=== PATIENT | female | born 1975 | race Caucasian/White ===

== ENCOUNTER → 2021-02-20 10:14 | Outpatient (CLI) | payer OTHER, SELFPAY ==
--- NOTE | 2021-02-20 10:23 | RAD_ITS ---
STUDY: X-RAY - RIGHT WRIST REASON FOR EXAM: Female, 45 years old. PAIN/INJURY TECHNIQUE: 3 view(s) of the wrist were obtained. COMPARISON: None. FINDINGS: Normal visualized distal radius and ulna. Normal radiocarpal articulation. Normal distal radioulnar articulation. Normal carpal bones. Normal carpal articulations. Normal carpometacarpal articulation of the thumb. Normal second through fifth carpometacarpal articulations. Normal visualized metacarpal bones. The soft tissue structures are unremarkable. There is no demonstrated acute fracture. RAD/Wrist min 3 Views IMPRESSION: Normal x-ray examination of the wrist. Electronically Signed: Marlon Hester MD at 16:43 EDT , Service support ,
== END ==
PROVIDERS: PCP Family Medicine; Referring Provider Family Medicine; Visit Provider Family Medicine
DX: M25.531 Pain in right wrist (principal)
CPT/HCPCS: 73110

== ENCOUNTER → 2021-06-11 07:11 | Outpatient (CLI) | payer OTHER, SELFPAY ==
--- NOTE | 2021-06-11 07:13 | BI_ITS ---
MAMMOGRAPHY - BILATERAL SCREENING REASON FOR EXAM: Female, 45 years old. Routine annual screening examination. PERTINENT HISTORY: Mother with breast cancer. Aunt with breast cancer. TECHNIQUE: Digital bilateral breast mauri (3D mammographic acquisition) in the CC and MLO projections. 2-D mediolateral oblique (MLO) and craniocaudad (CC) views of both breasts were obtained. CAD: Full Field Digital Mammography with Computer Added Detection was performed. COMPARISON: Comparison is made with prior study dated 04/04/2016. FINDINGS: Breast Composition: The breasts are heterogeneously dense, which may obscure small masses. There are no dominant masses or suspicious calcifications. No other significant abnormalities are identified. There has been no significant change since the prior study. BI/SCRN MAMM (CAD)W/MAURI BILAT IMPRESSION: Stable bilateral screening mammogram. Yearly follow-up mammogram recommended. (A) ASSESSMENT CATEGORY: BIRADS Category 1: Negative. A letter regarding these results will be sent to the patient by the facility within 30 days. Approximately 10% of breast cancers are not detected by mammography. A normal mammogram should not delay biopsy of a clinically suspicious abnormality. [id number] Electronically Signed: Jasbir Zaldivar MD at 8:22 EDT , Service support ,
== END ==
PROVIDERS: PCP Family Medicine; Referring Provider Obstetrics & Gynecology; Visit Provider Obstetrics & Gynecology
DX: Z12.31 Encounter for screening mammogram for malignant neoplasm of breast (principal)
CPT/HCPCS: 77063; 77067

== ENCOUNTER → 2022-04-22 | Outpatient (CLI) | payer OTHER, SELFPAY | END | disposition home or self-care (01) | PROVIDERS: PCP Family Medicine; Referring Provider Family Medicine; Visit Provider Family Medicine | DX: U07.1 COVID-19 (principal) | CPT/HCPCS: 87635; U0003; U0005 ==

== ENCOUNTER 2023-06-17 10:00 | Outpatient (RCR) | payer OTHER, SELFPAY ==
--- NOTE | 2023-03-25 08:23 | HP.PTEVAL_ITS ---
Patient's Visit Information EVAN MORELAND is a 47 year old F referred to Physical Therapy by Dr. Leandro Swartz DO with a diagnosis of L knee pain. Date of Evaluation: 03/25/23 Physical Therapist: Good Gupta, PT, ATC - Visit Plan Frequency: 2x /Week Duration: 3 Weeks Plan: L LE strengthening, core strengthening, L LE stretching, bike, and HEP - Subjective Pt reports she was playing tennis in December this year when she experienced L knee pain. Pt reports she hoped the pain would get better, but it never did. Pt reports she feels like she may have injured her lateral meniscus. Pt reports she had an x-ray which revealed minimal OA. Pt reports she experiences pain when she sits and tries to maintain a bent knee. Pt denies her L knee popping, locking up, or giving out. Pt notes her major goal is to be able to play tennis again. Pt denies any prior Hx of L knee pain. No sleep difficulty at this time secondary to pain. 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 Pt reports she is R hand dominant. Pt notes her knee was more swollen at first, but is feeling a little better now. 1/10 pain at rest, 4/10 pain at worst (not during tennis, but more after playing tennis) - Pain L knee pain Pain Intensity (Out of 10): 1 Pain Intensity Range: 4 - Objective Neuro: B LE sensation is WNL to light touch. B achilles reflex= 2/3. Palpation: Pt is mostly sore along the lateral joint line of L knee. moderate crepitus with AROM B knees. No obvious deformity at this time. MMT: R knee flex= 41, ext= 48 #F; L knee flex= 38, ext= 45 #F. ROM: R knee 0-130, L knee 0-8-125. Special testing: pos 90/90 test (45 degree lag), post IT band test. All other special tests were negative. Girth at joint line: L knee 40 cm, R knee 39 cm - Balance/Special Test Scores Lower Extremity Functional Score: 68 - Goals Goal 1:: Decrease L knee pain x 50% to aid with lunging type of activity Goal Time Frame: 4-6 Weeks Goal 2:: Increase L knee ROM x 10 degrees to aid with return to tennis without limitation Goal Time Frame: 4-6 Weeks Goal 3:: I with HEP Goal Time Frame: 2-4 Weeks - Rehabilitation Potential Physical Therapy Diagnosis: Pt has L knee pain, weakness, and limited ROM secondary to L knee strain Rehabilitation Potential: Good - Anticipated Interventions Patient/Client Instruction: Educate patient on: Condition, Plan of Care For the Purpose of:: To improve self management Therapeutic Exercise to Include: Strength training, Endurance training, Flexibilty training, Dynamic Lumbar Stabilization For the Purpose of:: To decrease pain, To increase ROM, To improve muscle performance and motor function Cryotherapy (ice pack, ice massage): Yes For the Purpose of:: To decrease pain Thank you for the opportunity to evaluate your patient. For Medicare and Medicare HMO plans, please review the plan of care and approve it. It will need to be FAXED BACK to us at [phone] for Medicare purposes. For Medicare only, by signing this I certify the plan of care. Please let me know if there are questions or concerns regarding this plan of care. Physician Signature:___ Date:
--- NOTE | 2023-05-05 08:31 | HP.PTREVAL ---
Dr. Leandro Swartz, DO, It has been my pleasure to treat EVAN MORELAND over the last 4 visits for L knee pain. Please see the progress note below for an update on the physical therapy plan of care! Subjective: My knee is still a little sore. Definitely swollen Objective/Function: Girth at joint line: R knee 38 cm, L knee 40 cm. L knee strength is 5/5 throughout. L knee ROM: 0-10-125. Pt has remained relatively unchanged at this time. However, pt admits to performing HEP minimally. Plan Plan: Follow up in 4-6 weeks for a recheck and to address HEP advancements Balance/Gait/Functional tests - Balance/Special Test Scores Lower Extremity Functional Score: 68 Goals Goal 1:: Decrease L knee pain x 50% to aid with lunging type of activity Goal Time Frame: 4-6 Weeks Goal Progress: Progressing Goal 2:: Increase L knee ROM x 10 degrees to aid with return to tennis without limitation Goal Time Frame: 4-6 Weeks Goal Progress: Not Progressing Goal 3:: I with HEP Goal Time Frame: 2-4 Weeks Goal Progress: Goal Met Anticipated Interventions Patient/Client Instruction: Educate patient on: Condition, Plan of Care For the Purpose of:: To improve self management Therapeutic Exercise to Include: Strength training, Endurance training, Flexibilty training, Dynamic Lumbar Stabilization For the Purpose of:: To decrease pain, To increase ROM, To improve muscle performance and motor function Cryotherapy (ice pack, ice massage): Yes For the Purpose of:: To decrease pain Please do not hesitate to contact me at [phone] by phone or if you have questions or concerns regarding this new plan of care! Sincerely, Good Gupta, PT, ATC
--- NOTE | 2023-06-17 10:34 | HP.PTDCSUM ---
Discharge Summary D/C summary: It has been my pleasure to treat EVAN MORELAND referred by Dr. Leandro Swartz, DO, with the diagnosis of L knee pain for a total of 5 visit(s). Discharge Date: Please see the following information for a summary of their discharge status. Subjective Subjective: Pain has plateaued Pain L knee pain: Pain Intensity (Out of 10): 1 Overall Improvement % Improvement: 75 Objective Objective/Function: Pt is now I with HEP L knee ROM 0-120 degrees L knee MMT 5/5 throughout Pt feels 75% improvement Goals Goal 1:: Decrease L knee pain x 50% to aid with lunging type of activity Goal Progress: Goal Met Goal 2:: Increase L knee ROM x 10 degrees to aid with return to tennis without limitation Goal Progress: Not Progressing Goal 3:: I with HEP Goal Progress: Goal Met Plan Plan: Discharge to HEP D/C Information d/c sentence: If there are questions or concerns regarding this patient's physical therapy, please feel free to call me at [phone]. Thank you for the referral of this patient. Sincerely, Good Gupta, PT, ATC Balance/Gait/Functional tests Balance/Special Test Scores Lower Extremity Functional Score: 73
== END 2023-06-17 19:00 | disposition home or self-care (01) ==
LOC: PT 10:00
PROVIDERS: PCP Family Medicine; Referring Provider Student in an Organized Health Care Education/Training Program; Visit Provider Student in an Organized Health Care Education/Training Program
DX: M25.562 Pain in left knee (principal)
CPT/HCPCS: 97110; 97161; 97164

== ENCOUNTER → 2024-04-20 | Outpatient (CLI) | payer OTHER, SELFPAY ==
--- NOTE | 2024-04-20 07:28 | BI_ITS ---
MAMMOGRAPHY - BILATERAL SCREENING 3-D TOMOSYNTHESIS REASON FOR EXAM: Female, 48 years old. SCREENING PERTINENT HISTORY: No significant family history. TECHNIQUE: 2-D mammograms and 3-D Tomosynthesis of the breast (s) were performed. CAD was performed. COMPARISON: 06/11/2021 FINDINGS: The breast composition is heterogeneously dense that can obscure small breast masses. Scattered benign calcifications are seen. No dense spiculated masses or suspicious microcalcifications are identified. No architectural distortion is identified. There is no skin thickening or retraction. There has been no significant change since the prior study. BI/SCRN MAMM (CAD)W/MAURI BILAT IMPRESSION: No mammographic signs of malignancy. Routine yearly mammograms recommended. ASSESSMENT CATEGORY: BIRADS Category 1: Negative. A letter regarding these results will be sent to the patient by the facility within 30 days. FOLLOW UP RECOMMENDATION: Yearly follow up mammogram recommended. (A) Approximately 10% of breast cancers are not detected by mammography. A normal mammogram should not delay biopsy of a clinically suspicious abnormality. Electronically Signed: Vitaliy Cedillo MD at 9:52 EDT ,
== END | disposition home or self-care (01) ==
LOC: OPBI 07:27
PROVIDERS: PCP Family Medicine; Referring Provider Family Medicine; Visit Provider Family Medicine
DX: Z12.31 Encounter for screening mammogram for malignant neoplasm of breast (principal)
CPT/HCPCS: 77063; 77067

== ENCOUNTER → 2024-11-11 | Outpatient (CLI) | payer OTHER, SELFPAY ==
--- NOTE | 2024-11-11 07:51 | VDLE_ITS ---
Reason For Study: Left leg swelling RIGHT LEFT CFV is compressible, spontaneous, phasic, GSV is normal. competent and demonstrates normal CFV is compressible, spontaneous, phasic, augmentation. competent, and demonstrates normal Procedure augmentation. This is a venous duplex using B-mode, color FV is compressible, spontaneous, phasic, flow and spectral Doppler. competent and demonstrates normal Exam performed in department. augmentation. A preliminary report was called and/or faxed POP V is compressible, spontaneous, phasic, to Dr. Kinsey. competent and demonstrates normal augmentation. T/P Trunk is compressible. PTV is compressible. LT PerV is compressible. VL/Venous Duplex US, Unilateral Interpretation Summary Deep veins of the left lower extremity are patent and compressible segmentally. There is no evidence of left lower extremity deep vein thrombosis. The left great saphenous vein joão ears patent and compressible segmentally. Ordering Physician: Seth Kinsey Referring Physician: Belinda Moran Performed By: Neva King RVT
== END | disposition home or self-care (01) ==
PROVIDERS: PCP Family Medicine; Referring Provider Family Medicine; Visit Provider Family Medicine
DX: M79.89 Other specified soft tissue disorders (principal); Z82.49 Family history of ischemic heart disease and other diseases of the circulatory system
CPT/HCPCS: 93971